=== PATIENT | male | born 1995 | race African-American/Black ===

== ENCOUNTER 2017-07-06 21:32 | Emergency (ER) | payer SELFPAY ==
[~2017-07-06] VITALS: Ht 167.6 cm; Wt 81.9 kg
[~2017-07-06 21:32] MED LIST: BENTYL10 MG PO; CIPRO500 MG PO; FLAGYL500 MG PO; NOHOMEMEDS
[2017-07-06] MEDS ORDERED: ROBITUSSIN AC,T10 ML PO (23:38)
[2017-07-06] MEDS ORDERED: AUGMENTIN875 MG PO (23:38)
[2017-07-06] MEDS ORDERED: SUDAFED 12-HOU120 MG PO (23:38)
[2017-07-06 23:55] VITALS: BP 149/76
== END 2017-07-07 00:03 | disposition home or self-care (01) ==
LOC: EME 21:32
PROVIDERS: Emergency Medicine
DX: H66.92 Otitis media, unspecified, left ear (principal); J02.9 Acute pharyngitis, unspecified
CPT/HCPCS: 71046; 87502; 99281; 99283